=== PATIENT | male | born 1960 | race Caucasian/White ===

== ENCOUNTER 2021-10-09 15:26 | Emergency (ER) | payer SELFPAY ==
[2021-10-09] MEDS ORDERED: Lidocaine/Epineph/Tetracaine 3 ML Syringe TOP ONE (18:35)
[2021-10-09] MEDS ORDERED: Amoxicillin/Clavulanate K 875-125 MG Tab PO ONE (19:29)
== END 2021-10-09 19:39 | disposition home or self-care (01) ==
LOC: MW.ED 15:26
DX: S01.551A Open bite of lip, initial encounter (principal); Z79.899 Other long term (current) drug therapy; W54.0XXA Bitten by dog, initial encounter
CPT/HCPCS: 12011; 99283; A9270

== ENCOUNTER 2022-01-25 08:19 | Emergency (ER) | payer BC ==
[2022-01-25] MEDS: Ketorolac 30 MG/ML SDV IM ONE (08:53)
== END 2022-01-25 09:14 | disposition home or self-care (01) ==
LOC: MW.ED 08:19
DX: G89.29 Other chronic pain (principal); M25.562 Pain in left knee
CPT/HCPCS: 96372; 99283; J1885

== ENCOUNTER 2024-01-10 14:14 | Emergency (ER) | payer BC | END 2024-01-10 16:10 | disposition home or self-care (01) | LOC: MW.ED 14:14 | DX: M79.662 Pain in left lower leg (principal); R22.42 Localized swelling, mass and lump, left lower limb; Z75.8 Other problems related to medical facilities and other health care | CPT/HCPCS: 93971-26-LT; 93971-LT; 99283 ==

== ENCOUNTER 2024-05-14 20:35 | Emergency (ER) | payer BC ==
[2024-05-14 21:01] LABS: BASOPHILS ABSOLUTE AUTO 0.06 K/uL (0.00-0.20); BASOPHILS PERCENT AUTO 0.7 % (0.0-1.0); EOSINOPHILS PERCENT AUTO 3.7 % (0.0-6.0); HEMATOCRIT 38.7 % (42.0-52.0); HEMOGLOBIN 13.7 g/dL (14.0-18.0); IMMATURE GRAN ABSOLUTE AUTO 0.02 K/uL (0.00-0.05); IMMATURE GRAN PERCENT AUTO 0.2 % (0.0-0.4); LYMPHOCYTES ABSOLUTE AUTO 2.28 K/uL (1.00-4.80); MEAN CORPUSCULAR HEMOGLOBIN 31.7 pg (28.0-32.0); MEAN CORPUSCULAR HGB CONC 35.4 g/dL (32.0-36.0); MEAN CORPUSCULAR VOLUME 89.6 fL (83.0-99.0); MEAN PLATELET VOLUME 9.6 fL (9.4-12.4); MONOCYTES ABSOLUTE AUTO 0.74 K/uL (0.00-0.80); MONOCYTES PERCENT AUTO 9.1 % (0.0-8.0); NEUTROPHILS ABSOLUTE AUTO 4.74 K/uL (1.80-7.70); NEUTROPHILS PERCENT AUTO 58.3 % (41.0-71.0); PLATELET COUNT,PLT 298 K/uL (150-400); RED BLOOD CELL COUNT 4.32 M/uL (4.52-5.90); WHITE BLOOD CELL COUNT,WBC 8.14 K/uL (3.9-11.3)
[2024-05-14] MEDS ORDERED: Naloxone 0.4 MG/ML SDV IVPUSH PRN (21:16)
[2024-05-14 21:38] LABS: A/G RATIO 1.3 (0.9-1.6); ALBUMIN 4.1 g/dL (3.4-5.0); BILIRUBIN TOTAL 0.3 mg/dL (0.2-1.0); CALCIUM 9.2 mg/dL (8.5-10.1); CARBON DIOXIDE,CO2 27.4 mmol/L (21.0-32.0); CREATININE 1.2 mg/dL (0.8-1.3); EST CRCL DRUG DOSING (CG) 68.26 mL/min; POTASSIUM,K 3.2 mmol/L (3.5-5.1); PROTEIN TOTAL,TP 7.3 g/dL (6.4-8.2)
[2024-05-14] MEDS: HYDROmorphone 1 MG/ML Syringe IM ONE (22:20)
[2024-05-14] MEDS ORDERED: Potassium Chloride 20 MEQ Tab.ER PO ONE (22:59)
== END 2024-05-15 01:45 ==
LOC: MW.ED 20:35
DX: R55 Syncope and collapse (principal); Z79.899 Other long term (current) drug therapy
CPT/HCPCS: 36415; 71045; 71045-26; 80053; 83880; 84484; 85025; 93005; 93010; 99283; 99285

== ENCOUNTER 2024-12-10 06:44 | Day surgery (SDC) | payer BC ==
[2024-12-10] MEDS ORDERED: Bupivacaine 0.5% 30 ML SDV ONE (07:19)
[2024-12-10] MEDS: Pregabalin 75 MG Cap PO SCH (07:25)
[2024-12-10] MEDS: Acetaminophen 500 MG Tab PO ONE (07:25)
[2024-12-10] MEDS: Lactated Ringers 1,000 ML IV SCH (07:34)
[2024-12-10] MEDS ORDERED: fentaNYL 100 MCG/2 ML SDV ONE (07:39)
[2024-12-10] MEDS ORDERED: Propofol 200 MG/20 ML SDV ONE (07:39)
[2024-12-10] MEDS ORDERED: Rocuronium Bromide 50 MG/5 ML Syringe ONE ×2 (07:40→08:45)
[2024-12-10] MEDS ORDERED: Ondansetron 4 MG/2 ML SDV ONE (07:40)
[2024-12-10] MEDS ORDERED: Midazolam 1 MG/ML 2 ML SDV ONE (07:40)
[2024-12-10] MEDS ORDERED: Lidocaine 1% 5 ML VIAL ONE (07:40)
[2024-12-10] MEDS ORDERED: Dexamethasone 4 MG/ML 5 ML MDV ONE (07:40)
[2024-12-10] MEDS ORDERED: dexmedeTOMIDine HCl 200 MCG/2 ML SDV ONE (07:42)
[2024-12-10] MEDS ORDERED: Sodium Chloride 0.9% 20 ML ONE (07:42)
[2024-12-10] MEDS ORDERED: Bupivacaine 0.25% 30 ML SDV ONE (07:44)
[2024-12-10] MEDS ORDERED: ceFAZolin 2 GM Vial ONE (08:23)
[2024-12-10] MEDS ORDERED: Naloxone 0.4 MG/ML SDV IVPUSH PRN (08:26)
[2024-12-10] MEDS ORDERED: Phenylephrine HCl In 0.9% NaCl 1 MG/10 ML Syringe IVPUSH PRN (08:26)
[2024-12-10] MEDS ORDERED: fentaNYL 50 MCG/ML SDV IVPUSH PRN (08:26)
[2024-12-10] MEDS ORDERED: Ondansetron 4 MG/2 ML SDV IVPUSH PRN (08:26)
[2024-12-10] MEDS ORDERED: Albuterol 0.083% 2.5 MG/3 ML Neb Soln NEB PRN (08:26)
[2024-12-10] MEDS ORDERED: Metoclopramide 10 MG/2 ML SDV IVPUSH PRN (08:26)
[2024-12-10] MEDS ORDERED: HYDROmorphone 1 MG/ML Syringe IVPUSH PRN (08:26)
[2024-12-10] MEDS ORDERED: Morphine 2 MG/ML SYRINGE IVPUSH PRN (08:26)
[2024-12-10] MEDS ORDERED: ePHEDrine 50 MG/ML SDV ONE (08:37)
[2024-12-10] MEDS ORDERED: Ketorolac 30 MG/ML SDV ONE (09:54)
[2024-12-10] MEDS ORDERED: Sugammadex Sodium 200 MG/2 ML VIAL IV ONE (09:54)
[2024-12-10] MEDS ORDERED: ceFAZolin 2 GM in Water For Injection, Sterile 20 ML IVPUSH ONE (17:26)
== END 2024-12-10 12:50 | disposition home or self-care (01) ==
LOC: MW.SDS 06:44
PROVIDERS: ATTEND Surgery
DX: K40.91 Unilateral inguinal hernia, without obstruction or gangrene, recurrent (principal); K40.90 Unilateral inguinal hernia, without obstruction or gangrene, not specified as recurrent; D17.6 Benign lipomatous neoplasm of spermatic cord; I10 Essential (primary) hypertension; G25.81 Restless legs syndrome; Z87.891 Personal history of nicotine dependence; Z79.899 Other long term (current) drug therapy
CPT/HCPCS: 49650; 49651; 64488; A9270; C1781; J0665; J0690; J1100; J1885; J2003; J2250; J2704; J3010; J7120; J2405; J3490